=== PATIENT | male | born 1970 | race Caucasian/White ===

== ENCOUNTER 2016-12-03 20:02 | Emergency (ER) | payer MEDICAID, OTHER ==
[~2016-12-03] VITALS: Ht 175.3 cm; Wt 77.1 kg
[~2016-12-03 20:02] MED LIST: ALBUT2 CONTNEB; HYDR1TAB4 PO
[2016-12-03 21:01] LABS: BASOPHILS # (AUTO) 0.3 /CMM (0.0-0.2); BASOPHILS % (AUTO) 2.5 % (0.0-2.0); EOSINOPHILS % (AUTO) 0.2 % (0.0-6.0); HEMATOCRIT 50 % (39-51); LYMPHOCYTES # (AUTO) 1.2 /CMM (0.8-4.8); LYMPHOCYTES % (AUTO) 11.8 % (20.0-44.0); MEAN CORPUSCULAR HEMOGLOBIN 30 PG (26.0-33.0); MEAN CORPUSCULAR HGB CONC 34 g/dl (31.0-36.0); MEAN CORPUSCULAR VOLUME 89 fL (80-96); MONOCYTES # (AUTO) 0.6 /CMM (0.1-1.30); MONOCYTES % (AUTO) 6.1 % (2.0-12.0); NEUTROPHILS # (AUTO) 8.1 /CMM (1.8-8.9); NEUTROPHILS % (AUTO) 79.4 % (43.0-81.0); PLATELET COUNT (AUTO) 240 /CMM (150-450); RDW COEFFICIENT OF VARIATION 12.5 (11.5-15.0); RED BLOOD CELL COUNT(AUTO) 5.65 MIL/uL (4.5-6.0); WHITE BLOOD COUNT (AUTO) 10.2 K/uL (4.3-11.0)
--- NOTE | 2016-12-03 21:03 | NUR ---
PT TRANSPORTED TO RADIOLOGY FOR CT'S AND XRAYS.
[2016-12-03 21:08] LABS: CALCIUM, SERUM 9.7 mg/dL (8.5-10.1); CREATININE 1.4 mg/dL (0.6-1.3); POTASSIUM 4.2 mmol/L (3.5-5.1)
[2016-12-03 21:12] LABS: INR 0.97 (0.87-1.13); PROTHROMBIN TIME 10.1 SECS (9.5-12.7)
--- NOTE | 2016-12-03 21:45 | NUR ---
PT BACK FROM RADIOLOGY. PENDING CT AND XRAY RESULTS.
--- NOTE | 2016-12-03 22:14 | NUR ---
CALLED [facility] ER FOR HIGHER LEVEL OF CARE TRANSFER. SPOKE WITH CHARGE NURSE TAMMY. NO OPHTHALMOLOGY AT [place], UNABLE TO ACCEPT.
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
[2016-12-03] MEDS ORDERED: MORPHINE SULFATE INJ 2 MG/ML DISP.SYRIN IV ONE (22:30)
[2016-12-03] MEDS ORDERED: ONDANSETRON HCL/PF - ER 4 MG/2 ML VIAL IV ONE (22:30)
[2016-12-03] MEDS ORDERED: ONDANSETRON HCL/PF 4 MG/2 ML VIAL ONE (22:39)
[2016-12-03] MEDS ORDERED: MORPHINE SULFATE INJ 4 MG/ML DISP.SYRIN ONE (22:39)
--- NOTE | 2016-12-03 22:45 | NUR ---
ACCEPTED AT [facility] BY DR CARBALLO. [facility] [id number] REPORT NOT NECESSARY.
--- NOTE | 2016-12-03 22:54 | NUR ---
CALLED SID FOR BLS TRANSPORT TO [facility] ER AND SPOKE WITH KIRBY. WAS GIVEN ETA OF 4AM. WAS TRANSFERRED TO [facility] AND GIVEN ETA OF 90 MINUTES -2 HOURS.
--- NOTE | 2016-12-03 23:51 | NUR ---
RECEIVED CALL FROM WARD HENDERSON [facility]. NEW ETA: [phone]
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
[2016-12-04 00:47] VITALS: BP 137/63
== END 2016-12-04 01:03 | disposition short-term general hospital (02) ==
LOC: ER 20:10
DX: S02.82XA Fracture of other specified skull and facial bones, left side, initial encounter for closed fracture (principal); S05.12XA Contusion of eyeball and orbital tissues, left eye, initial encounter; N28.9 Disorder of kidney and ureter, unspecified; E11.9 Type 2 diabetes mellitus without complications; Z85.9 Personal history of malignant neoplasm, unspecified; Y04.2XXA Assault by strike against or bumped into by another person, initial encounter; Y93.89 Activity, other specified; Y92.89 Other specified places as the place of occurrence of the external cause; Y99.9 Unspecified external cause status
CPT/HCPCS: 36415; 70450; 70486; 71010; 72100; 72125; 72170; 80048; 85025; 85730; 86850; 96374; 96375; 99285; A4606; J2270; J2405 ×2; L0172; Z7610

== ENCOUNTER 2019-03-02 17:55 | Emergency (ER) | payer MEDICAID ==
[~2019-03-02] VITALS: Ht 177.8 cm; Wt 70.8 kg
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
--- NOTE | 2019-03-02 19:06 | NUR ---
report given to Nathaniel ROSS for keira.
--- NOTE | 2019-03-02 19:07 | NUR ---
seen and evaluated by
--- NOTE | 2019-03-02 19:34 | NUR ---
Rad Techs at bedside for xray
[2019-03-02 21:33] VITALS: BP 137/83
--- NOTE | 2019-03-02 21:33 | NUR ---
Patient discharged to home in stable condition. Written and verbal after care instructions given. Patient verbalizes understanding of instruction.
== END 2019-03-02 21:33 | disposition home or self-care (01) ==
LOC: ER 17:57
DX: S22.32XA Fracture of one rib, left side, initial encounter for closed fracture (principal); S80.02XA Contusion of left knee, initial encounter; E11.9 Type 2 diabetes mellitus without complications; Z98.890 Other specified postprocedural states; Z60.2 Problems related to living alone; Z79.899 Other long term (current) drug therapy; V03.99XA Pedestrian with other conveyance injured in collision with car, pick-up truck or van, unspecified whether traffic or nontraffic accident, initial encounter; Y93.K1 Activity, walking an animal; Y92.89 Other specified places as the place of occurrence of the external cause; Y99.8 Other external cause status
CPT/HCPCS: 71100-TC; 73564-TC

== ENCOUNTER 2019-06-12 21:49 | Emergency (ER) | payer MEDICAID ==
[~2019-06-12] VITALS: Ht 175.3 cm; Wt 74.8 kg
[2019-06-12 22:01] VITALS: BP 127/73
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
[2019-06-12] MEDS ORDERED: SILVER SULFADIAZINE CREAM 25 GM TUBE ONE (22:20)
--- NOTE | 2019-06-12 22:22 | NUR ---
AT BEDSIDE FOR WOUND CARE.
[2019-06-12] MEDS ORDERED: SILVER SULFADIAZINE 50 GM JAR TP PRN (22:30)
--- NOTE | 2019-06-12 22:45 | NUR ---
Patient discharged to home in stable condition. Written and verbal after care instructions given. Patient verbalizes understanding of instruction. Pt ambulatory with a steady gait. Rest of medication dispensed to patient as per MD order.
== END 2019-06-12 22:55 | disposition home or self-care (01) ==
LOC: ER 21:52
DX: T23.202A Burn of second degree of left hand, unspecified site, initial encounter (principal); E11.9 Type 2 diabetes mellitus without complications; Z98.890 Other specified postprocedural states; Z60.2 Problems related to living alone; Z79.899 Other long term (current) drug therapy; X08.8XXA Exposure to other specified smoke, fire and flames, initial encounter; Y93.89 Activity, other specified; Y92.89 Other specified places as the place of occurrence of the external cause; Y99.8 Other external cause status

== ENCOUNTER 2023-12-23 23:58 | Emergency (ER) | payer MEDICAID | END 2023-12-24 01:38 | disposition left against medical advice (07) | LOC: ER 12-24 00:03 | DX: M79.606 Pain in leg, unspecified (principal); Z53.21 Procedure and treatment not carried out due to patient leaving prior to being seen by health care provider ==